=== PATIENT | male | born 1965 | race Caucasian/White ===

== ENCOUNTER 2024-05-13 10:58 | Emergency (ER) | payer MEDICAID ==
[~2024-05-13] VITALS: Ht 165.1 cm; Wt 80.0 kg
[2024-05-13 11:02] VITALS: O2SAT 98
[2024-05-13 11:05] VITALS: BP 118/83; PULSE 62; RESP 16; TEMP 98; O2SAT 95
[2024-05-13 11:52] LABS: BASOPHILS % 0.5 % (0.0-2.0); EOSINOPHILS % 2.2 % (0.0-5.0); HEMATOCRIT. 42.7 % (42.0-52.0); HEMOGLOBIN. 13.9 g/dL (14.0-18.0); LYMPHOCYTES % 27.3 % (20.0-50.0); MEAN CORPUSCULAR HEMOGLOBIN 27.5 pg (28.0-32.0); MEAN CORPUSCULAR HGB CONC 32.6 g/dL (31.0-37.0); MEAN CORPUSCULAR VOLUME 84.3 fL (80.0-94.0); MEAN PLATELET VOLUME 8.2 fl (7.4-10.4); MONOCYTES % 8.1 % (2.0-8.0); NEUTROPHILS % 61.9 % (40.0-76.0); PLATELET 192 x1000/uL (130-400); RED BLOOD CELL COUNT 5.07 mill/uL (4.7-6.1); RED CELL DISTRIBUTION WIDTH 14.2 % (11.6-14.6); WHITE BLOOD COUNT 5.8 x1000/uL (4.5-11.0)
[2024-05-13 12:01] LABS: CHLORIDE 108 mEq/L (98-107); POTASSIUM 4.2 mEq/L (3.5-5.1); SODIUM 141 mEq/L (136-145)
[2024-05-13 12:02] LABS: CLARITY URINE CLEAR (CLEAR); COLOR URINE YELLOW (YELLOW); GLUCOSE URINE NEGATIVE (NEGATIVE); KETONES URINE NEGATIVE (NEGATIVE); LEUKOCYTE ESTERASE URINE NEGATIVE (NEGATIVE); NITRITE URINE NEGATIVE (NEGATIVE); OCCULT BLOOD URINE NEGATIVE (NEGATIVE); PH URINE 5.5 (4.5-8.0); PROTEIN URINE NEGATIVE (NEGATIVE); UROBILINOGEN URINE 0.2 E.U./dL (0.2-1.0)
[2024-05-13 12:02] LABS: CALCIUM 10.1 mg/dL (8.7-10.4); CARBON DIOXIDE 26 mEq/L (21-32)
[2024-05-13 12:05] LABS: PROTHROMBIN TIME 10.7 sec (9.6-11.0)
[2024-05-13 12:07] LABS: GLUCOSE 92 mg/dL (70-105); UREA NITROGEN BLOOD 21 mg/dL (9-23)
[2024-05-13 12:58] LABS: TROPONIN I HIGH SENSITIVITY < 4 ng/L (3.0-53)
[2024-05-13] MEDS ORDERED: LIDO700A15 TP (13:57)
== END 2024-05-13 14:02 | disposition home or self-care (01) ==
LOC: ER 10:58 → EDBD 10:58 → ER 14:02
DX: R07.9 Chest pain, unspecified (principal); E78.00 Pure hypercholesterolemia, unspecified; Z98.890 Other specified postprocedural states
CPT/HCPCS: 36415; 71045; 71250; 80048; 81003; 83880; 84484; 85025; 93005; 99285